=== PATIENT | male | born 1960 | race Caucasian/White ===

== ENCOUNTER 2023-03-14 11:53 | Emergency (ER) | payer OTHER, SELFPAY ==
[2023-03-14] VITALS (11 sets, daily range): BP systolic 126–142; BP diastolic 90–111; PULSE 111; RESP 16–18; TEMP 36.8; O2SAT 95–100
--- NOTE | 2023-03-14 13:12 | ED.EPISTAXIS ---
HPI - Epistaxis General Chief complaint: Epistaxis Stated complaint: Nose bleed Time Seen by Provider: 03/14/23 13:07 Source: patient Mode of arrival: ambulatory Limitations: no limitations History of Present Illness HPI Narrative: Patient woke up in the morning with left nostril bleed, severe, lasted for 2 hours and then stopped, restarted again 1 hour later. Patient is not on antiplatelet or anticoagulant medication. On arrival to the ED was not bleeding. Patient denies having similar symptoms. Related Data Allergies Allergy/AdvReac Type Severity Reaction Status Date / Time Penicillins Allergy Unknown Verified 03/14/23 11:53 Review of Systems Review of Systems: All systems reviewed & are unremarkable except as noted in HPI and below Exam Narrative: General appearance: Well-developed, well-nourished Skin: Normal color Head: Normocephalic, nontraumatic Eyes: Clear conjunctiva ENT: Left nostril showed trace of blood, no active bleeding, unable to identify the source of bleeding. Neck: Supple, nontender Chest and respiratory: Airway patent, no respiratory distress, no accessory muscle use Heart: Regular rate/rhythm Abdomen: Vascular: Normal peripheral pulses, normal capillary refill. 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, no gross motor deficit Course Reevaluation(s) Reevaluation #1: Feeling much better after removing 3 cc of fluid out of the Rhino Rocket Date: 03/14/23 Time: 16:47 Vital Signs Vital signs: Vital Signs Temperature 36.8 C 03/14/23 11:56 Pulse Rate 111 H 03/14/23 11:56 Respiratory Rate 18 03/14/23 11:56 Blood Pressure 142/111 H 03/14/23 11:56 Pulse Oximetry 99 03/14/23 11:56 Oxygen Delivery Room Air 03/14/23 11:56 Temperature 36.8 C 03/14/23 11:56 Pulse Rate 111 H 03/14/23 11:56 Respiratory Rate 18 03/14/23 11:56 Blood Pressure 142/111 H 03/14/23 11:56 Pulse Oximetry 99 03/14/23 11:56 Oxygen Delivery Room Air 03/14/23 11:56 Procedures Epistaxis Control left: Epistaxis Control Date: 03/14/23 Epistaxis Control Time: 16:51 Time Out Performed: Yes (10) Direct Inspection: yes and unable to visualize Cautery Used: none Device Inserted: hemostatic balloon Device Size: 75 Complications: pain Epistaxis Control Narrative: Patient did not get Toradol and morphine 4 mg IV, 3 cc of normal saline withdrawn with remarkable improvement MDM - Epistaxis MDM Narrative Medical decision making narrative: Patient woke up with left nostril bleed, on arrival to the ED, no obvious source of bleeding, no active bleeding at this time. Patient was offered Rhino Rocket, agreed, Rhino Rocket placed, 5 cc normal saline, patient was not able to tolerated, 4 mg morphine IV, no improvement, 3 cc withdrawal out of the Rhino Rocket with remarkable improvement. Patient is not on antiplatelet or anticoagulant medication, the bleeding is high likely secondary to high temperature 99 Fahrenheit and patient was outdoors emergency vehicle driver. Patient also reported some sneezing and picking on his nose lately Patient tolerated the procedure well but because of the severity of pain, remarkable improvement after 3 cc normal saline withdrawal. Patient received 500 mg of Levaquin p.o. prior to discharge, A prescription of Levaquin, and to follow-up with ENT tomorrow. CBC and PT PTT showed no acute abnormalities Differential Diagnosis Differential diagnosis: Likely anterior epistaxis Lab Data 03/14/23 15:05 Labs: Lab Results 03/14/23 Range/Units 15:05 WBC 11.7 H (4.5-10.0) K/mm3 RBC 5.55 (4.6-6
[2023-03-14] MEDS: MORPHINE SULFATE (*CRX) 4 MG/ML INJ 6 MG IM (15:09)
[2023-03-14 15:11] LABS: Basophils Absolute Auto 0.1 K/mm3 (0.0-0.1); Basophils Percent Auto 0.5 % (0.2-1.2); Eosinophils Absolute Auto 0.1 K/mm3 (0-0.3); Eosinophils Percent Auto 0.7 % (0-4.4); Hematocrit 45.1 % (42.0-52.0); Hemoglobin 14.9 g/dL (14.0-18.0); Immature Granulocyte Absolute 0.05 K/mm3 (0.00-0.031); Immature Granulocyte Percent A 0.4 % (0-0.5); Lymphocytes Absolute Auto 2.11 K/mm3 (0.9-3.2); Mean Corpuscular Hemoglobin 26.8 pg (26-34); Mean Corpuscular Volume 81.3 fl (80-100); Mean Platelet Volume 9.4 fl (7.4-10.4); Monocytes Absolute Auto 0.5 K/mm3 (0.1-0.6); Monocytes Percent Auto 4.4 % (2.6-8.5); Neutrophils Absolute Auto 8.9 K/mm3 (1.3-6.7); Platelet Count Result 283 k/mm3 (150-375); Red Blood Count 5.55 M/mm3 (4.6-6.20); Red Cell Distribution Width 13.4 % (11.5-14.5); White Blood Count 11.7 K/mm3 (4.5-10.0)
[2023-03-14] MEDS: levoFLOXacin 500 MG TABLET PO (15:18)
[2023-03-14 15:22] LABS: Prothrombin Time 13.2 Seconds (11.1-14.7)
[2023-03-14] MEDS: HYDROmorphone HCL INJ (*CRX) 1 MG/ML SYR IM (16:27)
== END 2023-03-14 17:00 | disposition home or self-care (01) ==
LOC: ANHED 15:33
PROVIDERS: Emergency Provider Emergency Medicine
DX: R04.0 Epistaxis (principal)
CPT/HCPCS: 30901; 36415; 85025; 85610; 85730; 96372; 99284; A9270; J1170; J2270

== ENCOUNTER 2023-03-15 08:39 | Emergency (ER) | payer OTHER, SELFPAY ==
[2023-03-15] VITALS (7 sets, daily range): BP systolic 155–169; BP diastolic 96–103; PULSE 60; RESP 16–18; TEMP 36.7; O2SAT 100
--- NOTE | 2023-03-15 09:00 | ED.EPISTAXIS ---
HPI - Epistaxis General Chief complaint: Epistaxis Stated complaint: need rhino rocket removed Time Seen by Provider: 03/15/23 08:59 Source: patient and old records reviewed Mode of arrival: ambulatory Limitations: no limitations History of Present Illness HPI Narrative: Patient is a 62 y/o male who presents to the ED with c/o wanting his rhino rocket removed. Patient was seen in the ED yesterday for a L sided epistaxis. He had a rhino rocket placed and was referred to ENT, d/c on levaquin. Patient states he was unable to get into the ENT because [facility]. He came back to the ED to have his rhino rocket removed. Denies any further bleeding from the front of the packing or down his throat. Denies difficulty breathing or swallowing. Denies fevers. Patient is not on any blood thinners. Related Data Allergies Allergy/AdvReac Type Severity Reaction Status Date / Time Penicillins Allergy Unknown Verified 03/15/23 08:57 Review of Systems Review of Systems: CONSTITUTIONAL: Denies fever, chills, or sweats. ENT: See HPI. CARDIOVASCULAR: Denies chest pain. RESPIRATORY: Denies dyspnea. GASTROINTESTINAL: Denies nausea, vomiting. All systems reviewed & are unremarkable except as noted in HPI and below Exam Narrative: GENERAL: Well appearing, well-nourished, non-toxic, in no acute distress. HEAD: Normocephalic, atraumatic. ENT: L nare with Rhino Rocket in place. Small amount of mucous-like blood anterior to packing. No blood draining down face or nose. No blood noted to posterior pharynx. No stridor. NECK: Supple. No adenopathy, no masses. RESPIRATORY: Airway patent, respirations nonlabored. Clear to auscultation bilaterally, no rales, rhonchi, wheezing. CARDIOVASCULAR: Regular rate and rhythm without murmurs, rubs, or gallops. Radial pulses 2+ and equal bilaterally. MUSCULOSKELETAL: Moves all extremities. Strength/ROM intact without gross deformities. SKIN: Warm, dry, normal color. No rashes. NEURO: A&O X3. FOND [place] LAC. Speech clear. Cranial nerves II-XII grossly intact. Steady gait. No ataxic movements. PSYCHIATRIC: Appropriate mood and affect. Normal interaction. Course Vital Signs Vital signs: Vital Signs Temperature 98.1 F 03/15/23 08:48 Pulse Rate 60 03/15/23 08:48 Respiratory Rate 18 03/15/23 08:48 Blood Pressure 157/96 H 03/15/23 08:48 Pulse Oximetry 100 03/15/23 08:48 Oxygen Delivery Room Air 03/15/23 08:48 Temperature 98.1 F 03/15/23 08:48 Pulse Rate 60 03/15/23 10:10 Respiratory Rate 16 03/15/23 10:10 Blood Pressure 169/100 H 03/15/23 10:10 Pulse Oximetry 100 03/15/23 10:10 Oxygen Delivery Room Air 03/15/23 08:48 MDM - Epistaxis MDM Narrative Medical decision making narrative: Patient presented to ED wanting Rhino Rocket removed. Placed yesterday in the ED for left-sided epistaxis. Patient unable to follow-up with ENT. He states he was refused because he is [facility]. His [facility]. He has not tried contacting anyone else. Exam unremarkable. Vital stable. Afebrile. Patient discharged on Levaquin yesterday. I discussed with patient that we do not typically remove Rhino Rockets this quickly. Typically they stay in for ~3days. I discussed that while we can remove the Rhino Rocket today, if his bleeding were to recur and we were unable to control it with other measures such as nasal clamping, we would have to replace the Rhino Rocket which would likely be very uncomfortable. Utilize shared decision making. Patient voiced understanding of this. He states the rhino rocket is not that uncomfortable so he decided against having the Rhino Rocket removed at this time. I will provide patient with additional ENT information for follow-up. Advised to call around and make an appointment as soon as possible. Otherwise recommended he return here to have Rhino Rocket removed in the next couple of days. Patient given return precautions. Discharged in stable
== END 2023-03-15 10:10 | disposition home or self-care (01) ==
PROVIDERS: Emergency Provider Physician Assistant
DX: R04.0 Epistaxis (principal)
CPT/HCPCS: 99282

== ENCOUNTER 2023-03-17 07:37 | Emergency (ER) | payer OTHER, SELFPAY ==
[2023-03-17 07:40] VITALS: BP 157/99; PULSE 63; RESP 16; TEMP 36.4; O2SAT 100
--- NOTE | 2023-03-17 07:59 | ED.GENADULT ---
HPI - General Adult General Chief complaint: Unspecified Stated complaint: needs nasal packing removed Time Seen by Provider: 03/17/23 07:46 History of Present Illness HPI narrative: 62-year-old male who presented here 4 days ago with nosebleed is here today for removal of packing, he has not had any issues since then other than some discomfort. No further bleeding Related Data Allergies Allergy/AdvReac Type Severity Reaction Status Date / Time Penicillins Allergy Unknown Verified 03/17/23 07:58 Review of Systems Review of Systems: CONST: No fever. HEENT: Discomfort with Rhino Rocket in left naris but no nosebleed Exam Narrative: EXAMINATION OF ORGAN SYSTEMS/BODY AREAS: Constitutional: Vital signs per nursing GENERAL:[No acute distress, non-toxic appearing.] HEAD: Normal with no signs of head trauma. EYES: EOMI, conjunctiva normal ENT: Rhino Rocket in place left nare LUNGS: Nonlabored breathing. HEART: [Regular rate and rhythm] ABD: [Soft], [tender to palpation] EXT: Normal range of motion SKIN: [No rashes or lesions.] NEURO: [Alert and oriented x 3. No gross focal sensory or strength deficits.] PSYCH: Normal affect Course Vital Signs Vital signs: Vital Signs Temperature 97.6 F 03/17/23 07:40 Pulse Rate 63 03/17/23 07:40 Respiratory Rate 16 03/17/23 07:40 Blood Pressure 157/99 H 03/17/23 07:40 Pulse Oximetry 100 03/17/23 07:40 Oxygen Delivery Room Air 03/17/23 07:40 Temperature 97.6 F 03/17/23 07:40 Pulse Rate 63 03/17/23 07:40 Respiratory Rate 16 03/17/23 07:40 Blood Pressure 157/99 H 03/17/23 07:40 Pulse Oximetry 100 03/17/23 07:40 Oxygen Delivery Room Air 03/17/23 07:40 Medical Decision Making [facility] Narrative Medical decision making narrative: 62-year-old male presenting here for removal of Rhino Rocket, has not had any further issues with bleeding and has no other complaints, the balloon is deflated and Rhino Rocket removed easily, and patient feeling much better afterwards, there is no further blood, no signs of infection. Patient given return precautions as well as instructions on dealing with nosebleeds and prevention of nosebleeds including avoiding being in a very hot area, ensuring that he remains hydrated, and not having a fan blowing in his face all night. Vital Signs Vital Signs: Vital Signs Temperature 97.6 F 03/17/23 07:40 Pulse Rate 63 03/17/23 07:40 Respiratory Rate 16 03/17/23 07:40 Blood Pressure 157/99 H 03/17/23 07:40 Pulse Oximetry 100 03/17/23 07:40 Oxygen Delivery Room Air 03/17/23 07:40 Temperature 97.6 F 03/17/23 07:40 Pulse Rate 63 03/17/23 07:40 Respiratory Rate 16 03/17/23 07:40 Blood Pressure 157/99 H 03/17/23 07:40 Pulse Oximetry 100 03/17/23 07:40 Oxygen Delivery Room Air 03/17/23 07:40 Discharge Plan Discharge Clinical Impression: Encounter for removal of nasal packing Patient Disposition: Home, Self-Care Condition: Improved Instructions: Antibiotic Form, Nosebleed (ED) Additional Instructions: Please follow up with an ENT; keep hydrated, stay cool, don't point fans in your face, and you can use some vaseline in your nares and a humidifier. You can always return for any further issues. Prescriptions: No Action levofloxacin 500 mg tablet 500 mg PO DAILY Qty: 5 0RF Follow-up/Referrals: Tadeo Parker MD [Physician] - 2 Days [facility]EV[facility] [Primary Care Provider] -
== END 2023-03-17 09:17 | disposition home or self-care (01) ==
PROVIDERS: Emergency Provider Emergency Medicine
DX: Z48.00 Encounter for change or removal of nonsurgical wound dressing (principal)
CPT/HCPCS: 99282

== ENCOUNTER 2023-03-20 20:22 | Emergency (ER) | payer OTHER, SELFPAY ==
[2023-03-20] VITALS (7 sets, daily range): BP systolic 162–183; BP diastolic 110–151; PULSE 76–115; RESP 16–18; TEMP 36.7–36.8; O2SAT 96–100
--- NOTE | 2023-03-20 20:42 | PC.NURSE ---
pt c/c nose bleed. pt sts it started around 19:30. pt is very anxious. pt head was tilted back and a nose clamp was applied. pt is CADDO. axox4, bleeding is slowing since clamp. airway is negative
--- NOTE | 2023-03-20 20:53 | PC.NURSE ---
bleeding has stopped. pt is crying and worried about the cost of txt and pt is very anxious
[2023-03-20] MEDS: LIDO 1%/EPINEPHRINE 1:100,000 20 ML VIAL 10 ML INFILTRATE (21:00)
[2023-03-20] MEDS: LIDO 1%/EPINEPHRINE 1:100,000 50 ML VIAL 10 ML INFILTRATE (21:00)
--- NOTE | 2023-03-20 21:03 | PC.NURSE ---
at bedside doing txt
--- NOTE | 2023-03-20 21:32 | PC.NURSE ---
pt is very anxious. pt education was given about taking his BP medication with ATX. Brother in law yelled at pt for goggling s/s.
--- NOTE | 2023-03-20 22:13 | ED.GENADULT ---
HPI - General Adult General Chief complaint: Epistaxis Stated complaint: epistaxis Time Seen by Provider: 03/20/23 20:52 History of Present Illness HPI narrative: Patient is a 62-year-old gentleman who presents the emergency department with chief complaint of epistaxis. Patient reports that he recently had a nosebleed was seen in the emergency department and had packing placed. The patient is ultimately had the packing removed this evening started having a nosebleed again. The patient reports he had significant bleeding out of the left nostril reports he has not been able to see ENT as he is [facility] has had difficulty scheduling an appointment. Related Data Allergies Allergy/AdvReac Type Severity Reaction Status Date / Time Penicillins Allergy Unknown Verified 03/17/23 07:58 Review of Systems Review of Systems: A 10 system review of systems was completed on the patient and is negative except for what is stated in the HPI. Nursing and ancillary documentation was reviewed. Exam Narrative: GENERAL: Well-appearing, well-nourished, and in no acute distress. HEAD: Normocephalic, atraumatic. EYES: PERRLA and EOMI. ENT: Nares clear, no rhinorrhea slight epistaxis from the left nostril. Mucous membranes moist. NECK: Supple. CHEST: Clear to auscultation. No respiratory distress. HEART: Regular rate and rhythm. No murmur heard. Normal peripheral pulses. ABDOMEN: Soft, nontender, nondistended, normal active bowel sounds. EXTREMITIES: Normal range of motion. No edema. SKIN: Warm, dry, no rash. NEURO: No focal deficits. Alert and oriented x3. PSYCH: Normal mood and affect. Course Vital Signs Vital signs: Vital Signs Temperature 36.8 C 03/20/23 20:29 Pulse Rate 115 H 03/20/23 20:29 Respiratory Rate 18 03/20/23 20:29 Blood Pressure 163/126 H 03/20/23 20:29 Pulse Oximetry 96 03/20/23 20:29 Temperature 36.8 C 03/20/23 20:29 Pulse Rate 76 03/20/23 21:15 Respiratory Rate 16 03/20/23 21:15 Blood Pressure 173/151 H 03/20/23 21:15 Pulse Oximetry 100 03/20/23 21:15 Procedures Epistaxis Control left: Epistaxis Control Date: 03/20/23 Epistaxis Control Time: 22:16 Time Out Performed: Yes Nose Prepped With: lidocaine Direct Inspection: yes Clots Removed by: blowing nose Cautery Used: none Device Inserted: hemostatic balloon Device Size: 7 Patient Tolerated Procedure: well Medical Decision Making MDM Narrative Medical decision making narrative: Differential diagnosis includes ENT trauma, epistaxis, The patient's nose was repacked in the emergency department today and the patient will be referred to ENT bleeding was controlled Vital Signs Vital Signs: Vital Signs Temperature 36.8 C 03/20/23 20:29 Pulse Rate 115 H 03/20/23 20:29 Respiratory Rate 18 03/20/23 20:29 Blood Pressure 163/126 H 03/20/23 20:29 Pulse Oximetry 96 03/20/23 20:29 Temperature 36.8 C 03/20/23 20:29 Pulse Rate 76 03/20/23 21:15 Respiratory Rate 16 03/20/23 21:15 Blood Pressure 173/151 H 03/20/23 21:15 Pulse Oximetry 100 03/20/23 21:15 Discharge Plan Discharge Clinical Impression: Epistaxis Patient Disposition: Home, Self-Care Condition: Stable Instructions: Antibiotic Form, Nosebleed (ED) Prescriptions: No Action levofloxacin 500 mg tablet 500 mg PO DAILY Qty: 5 0RF Follow-up/Referrals: Tadeo Parker MD [Physician] - [facility]EV[facility] [Primary Care Provider] - Time of Disposition: 22:21
== END 2023-03-20 22:29 | disposition home or self-care (01) ==
PROVIDERS: Emergency Provider Emergency Medicine
DX: R04.0 Epistaxis (principal)
CPT/HCPCS: 30901; 99282

== ENCOUNTER 2023-03-21 13:36 | Emergency (ER) | payer OTHER, SELFPAY ==
[2023-03-21 13:58] VITALS: BP 130/99; PULSE 89; RESP 18; TEMP 36.2; O2SAT 99
--- NOTE | 2023-03-21 15:30 | ED.RECABL ---
HPI - Recheck/Abnormal Lab/Rx General Chief Complaint: Recheck/Abnormal Lab/Rx Stated Complaint: rhino rocket in place - wants air released Time Seen by Provider: 03/21/23 14:09 Source: patient Mode of arrival: ambulatory Limitations: no limitations History of Present Illness HPI narrative: This is a 62-year-old male that presents to the emergency department for nasal pain. Currently has a Rhino Rocket in place due to epistaxis. Reports he wants some of the area removed as it is very uncomfortable. Denies fevers. Related Data Allergies Allergy/AdvReac Type Severity Reaction Status Date / Time Penicillins Allergy Unknown Verified 03/21/23 13:36 Review of Systems Review of Systems: CONSTITUTIONAL: Denies fever ENT: Denies current epistaxis All systems reviewed & are unremarkable except as noted in HPI and below PMFSH Past Medical History Medical History (Updated 03/21/23 @ 15:35 by Meggan Villalba PA-C) No active medical problems Social History Social History (Updated 03/21/23 @ 15:35 by Meggan Villalba PA-C) Substance use: never Exam Narrative: GENERAL: Well-appearing, well-nourished, and in no acute distress. HEAD: Normocephalic, atraumatic. EYES: EOMI. ENT: Left nare with rhino rocket in place. No active bleeding noted. Mucous membranes moist. Oropharynx without tonsillar hypertrophy exudate or other lesions. NECK: Supple. No adenopathy or masses. EXTREMITIES: Normal range of motion. No edema. SKIN: Warm, dry, no rash. NEURO: No focal deficits. Alert and oriented x3. PSYCH: Normal mood and affect Course Vital Signs Vital signs: Vital Signs Temperature 97.1 F L 03/21/23 13:58 Pulse Rate 89 03/21/23 13:58 Respiratory Rate 18 03/21/23 13:58 Blood Pressure 130/99 H 03/21/23 13:58 Pulse Oximetry 99 03/21/23 13:58 Temperature 97.1 F L 03/21/23 13:58 Pulse Rate 89 03/21/23 13:58 Respiratory Rate 18 03/21/23 13:58 Blood Pressure 130/99 H 03/21/23 13:58 Pulse Oximetry 99 03/21/23 13:58 Procedures Other Procedure Procedure 1: Other Procedure: I removed about 1 cc of air from the balloon of the rhino rocket. No further bleeding noted MDM - Recheck/Abnormal Lab/Rx MDM Narrative Medical decision making narrative: Patient presents to the emergency department for nasal pain. He has a Rhino Rocket in place. Reports it is very uncomfortable. I did take a little bit of the air out of the balloon. No current bleeding. He does have follow-up with ENT tomorrow. He was given warnings to return to the ER Critical Care Time Critical Care Time Critical Care Time: No Discharge Plan Discharge Clinical Impression: Epistaxis, recurrent Patient Disposition: Home, Self-Care Condition: Stable Instructions: Nosebleed (ED) Additional Instructions: Return to the emergency department if you experience fever, nosebleed you are unable to control, or any other symptoms that are concerning to you Leave your packing in place. Tylenol or Ibuprofen as needed for pain Follow-up with your ENT doctor tomorrow Prescriptions: No Action levofloxacin 500 mg tablet 500 mg PO DAILY Qty: 5 0RF Follow-up/Referrals: [facility]EV[facility] [Primary Care Provider] - 1 Day
== END 2023-03-21 15:55 | disposition home or self-care (01) ==
PROVIDERS: Emergency Provider Physician Assistant
DX: R04.0 Epistaxis (principal)
CPT/HCPCS: 99282